=== PATIENT | female | born 1965 | race Caucasian/White ===

== ENCOUNTER → 2020-04-12 | Outpatient (CLI) | payer BC ==
--- NOTE | 2020-04-12 15:07 | Diagnostic Imaging Report ---
INDICATION: Knee pain. COMPARISON: None available. TECHNIQUE: 3 radiographs of the left knee dated 04/12/2020. FINDINGS: No acute fracture or dislocation. No destructive osseous process. Small superior patellar enthesophytes. No significant joint effusion. Minimal lateral joint space narrowing. No significant osteophytosis. No suspicious radiopaque foreign body. IMPRESSION: No acute osseous abnormality with minimal degenerative changes for age. Dictated by: Dictated on workstation # [id number]
== END ==
LOC: RAD FS 14:17
PROVIDERS: ATTEND Nurse Practitioner
DX: M25.561 Pain in right knee (principal); M25.562 Pain in left knee
CPT/HCPCS: 73562